=== PATIENT | male | born 1940 | race Caucasian/White ===

== ENCOUNTER 2020-07-09 16:19 | Inpatient (IN) ==
[2020-07-09 16:56] LABS: Basophils % 0.4 %; Eosinophils # 0.5 K/mcL (0.0-0.6); Eosinophils % 5.9 %; Hematocrit 34.6 % (37.5-50.1); Hemoglobin 10.2 g/dL (12.9-16.9); Immature Granulocytes % 0.2 % (0-4); Lymphocytes # 0.9 K/mcL (0.6-4.6); Lymphocytes % 11.3 %; Mean Corpuscular HGB Conc 29.5 g/dL (31.6-35.5); Mean Corpuscular Hemoglobin 26.2 pg (28.0-33.3); Mean Corpuscular Volume 88.7 fL (83.0-100.0); Mean Platelet Volume 10.9 fL (9.4-12.4); Monocytes # 0.8 K/mcL (0.0-1.3); Monocytes % 10.3 %; Neutrophils # 5.9 K/mcL (1.6-8.9); Platelet Count 341 K/mcL (140-400); Segmented Neutrophils % 71.9 %; White Blood Count 8.2 K/mcL (4.3-11.1)
[2020-07-09] MEDS ORDERED: Vancomycin 1,250 MG/262.5 ML IV.SOLN IVPB ONE (17:00)
[2020-07-09 17:12] LABS: Calcium 9.4 mg/dL (8.6-10.3); Potassium 4.9 mEq/L (3.5-5.1)
[2020-07-09] MEDS ORDERED: cefTRIAXone 1,000 MG in Water for inj. (sterile) 10 ML IVP ONE (17:13)
[2020-07-09] MEDS ORDERED: 0.9 % Sodium Chloride 1,000 ML IVC ONE (17:13)
[2020-07-09] MEDS ORDERED: Acetaminophen 325 MG TABLET PO PRN ×2 (20:25→23:47)
[2020-07-09] MEDS ORDERED: Naloxone 0.4 MG/ML INJ IVP PRN (20:25)
[2020-07-09] MEDS ORDERED: 0.9 % Sodium Chloride 1,000 ML IVC SCH (20:30)
[2020-07-09] MEDS ORDERED: Ipratropium/Albuterol Neb 3 ML IH PRN (20:44)
[2020-07-09] MEDS ORDERED: *HR* Dextrose 50 % in Water (Vial) 50 ML VIAL IVP PRN (20:45)
[2020-07-09] MEDS ORDERED: Dextrose Gel 15 GM/37.5 ML TUBE PO PRN ×2 (20:45)
[2020-07-09] MEDS ORDERED: D5% in Water 1,000 ML IVC PRN (20:45)
[2020-07-09 20:56] LABS: Bilirubin,Urine Negative (Negative); Blood,Urine Negative (Negative); Clarity,Urine Clear (Clear); Color,Urine Colorless (Yellow); Glucose,Urine (UA) Normal (Normal); Ketones,Urine Negative (Negative); Leukocyte Esterase,Urine Negative (Negative); Nitrite,Urine Negative (Negative); Protein,Urine 30 mg/dL (Neg-Trace); RBC,Urine 0-3 per hpf (0-3); Squamous Epithelial Cell,Urine Few per hpf (None-Few); Urobilinogen,Urine Normal (Normal); WBC,Urine 0-3 per hpf (0-3)
[2020-07-09] MEDS: Insulin LISPRO 300 UNITS/3 ML VIAL SQ SCH (21:01)
[2020-07-09 21:07] LABS: Protein/Creatinine Ratio,Urine 1.97 mg/mg (0.00-0.20)
[2020-07-09] MEDS: *HR* Heparin 5,000 UNIT/ML VIAL SQ SCH (21:23)
[2020-07-10] MEDS ORDERED: Furosemide 40 MG/4 ML VIAL IVP ONE (01:01)
[2020-07-10 01:15] LABS: Hematocrit 32.9 % (37.5-50.1); Mean Corpuscular HGB Conc 30.4 g/dL (31.6-35.5); Mean Corpuscular Hemoglobin 26.6 pg (28.0-33.3); Mean Corpuscular Volume 87.5 fL (83.0-100.0); Mean Platelet Volume 11.2 fL (9.4-12.4); Platelet Count 288 K/mcL (140-400); Red Blood Count 3.76 M/mcL (4.19-5.50); Red Cell Distribution Width 15.9 % (11.5-14.5); White Blood Count 10.4 K/mcL (4.3-11.1)
[2020-07-10 01:24] LABS: Albumin/Globulin Ratio 0.7 (1.1-2.2); Bilirubin,Total 0.2 mg/dL (0.3-1.0); Calcium 9.2 mg/dL (8.6-10.3); Globulin 4.3 g/dL (2.4-3.5); Potassium 4.9 mEq/L (3.5-5.1); Total Protein 7.3 g/dL (6.4-8.9)
[2020-07-10] MEDS ORDERED: Azithromycin 500 MG in 0.9 % Sodium Chloride 250 ML IVPB SCH (03:00)
[2020-07-10] MEDS: Ipratropium/Albuterol Neb 3 ML IH SCH ×5 (04:23→20:54)
[2020-07-10] MEDS: MethylPREDNISolone 40 MG/ML VIAL IVP SCH ×3 (04:50→16:33)
[2020-07-10] MEDS: *HR* Heparin 5,000 UNIT/ML VIAL SQ SCH ×3 (04:50→21:13)
[2020-07-10] MEDS: Insulin LISPRO 300 UNITS/3 ML VIAL SQ SCH ×3 (07:37→16:34)
[2020-07-10 07:38] LABS: Estimated Average Glucose 169 mg/dl
[2020-07-10] MEDS: DilTIAZem CD (24hr) 240 MG CAP.ER.24H PO SCH (07:53)
[2020-07-10] MEDS: allopurinoL 100 MG TABLET PO SCH (07:53)
[2020-07-10] MEDS: hydrALAZINE 25 MG TABLET PO SCH ×2 (07:53→21:12)
[2020-07-10] MEDS: Piperacillin/Tazobactam 3.375 GM in 0.9 % Sodium Chloride Mini Bag 100 ML IVPB SCH ×2 (07:54→21:13)
[2020-07-10] MEDS ORDERED: *HR* HYDROcodone/Acet 5/325 mg TABLET PO PRN (13:32)
[2020-07-10] MEDS ORDERED: Cefepime HCl 2,000 MG in 0.9 % Sodium Chloride Mini Bag 100 ML IVPB SCH (18:00)
[2020-07-10] MEDS: Furosemide 40 MG TABLET PO SCH (21:13)
[2020-07-11] MEDS: Ipratropium/Albuterol Neb 3 ML IH SCH ×7 (00:03→23:44)
[2020-07-11] MEDS: MethylPREDNISolone 40 MG/ML VIAL IVP SCH ×2 (05:02→18:50)
[2020-07-11] MEDS: *HR* Heparin 5,000 UNIT/ML VIAL SQ SCH ×3 (05:03→21:32)
[2020-07-11 05:40] LABS: Eosinophils # 0.1 K/mcL (0.0-0.6); Eosinophils % 0.6 %; Hemoglobin 10.2 g/dL (12.9-16.9); Immature Granulocytes % 0.2 % (0-4); Lymphocytes # 0.5 K/mcL (0.6-4.6); Lymphocytes % 5.5 %; Mean Corpuscular Hemoglobin 26.4 pg (28.0-33.3); Mean Corpuscular Volume 87.9 fL (83.0-100.0); Monocytes # 0.1 K/mcL (0.0-1.3); Monocytes % 1.2 %; Platelet Count 295 K/mcL (140-400); Red Blood Count 3.87 M/mcL (4.19-5.50); Red Cell Distribution Width 16.3 % (11.5-14.5); Segmented Neutrophils % 92.5 %
[2020-07-11 05:50] LABS: Calcium 9.5 mg/dL (8.6-10.3); Potassium 5.4 mEq/L (3.5-5.1)
[2020-07-11 06:26] LABS: Neutrophils # 8.3 K/mcL (1.6-8.9)
[2020-07-11 06:27] LABS: Platelet Estimate Normal (Normal)
[2020-07-11] MEDS: Furosemide 40 MG TABLET PO SCH (08:22)
[2020-07-11] MEDS: hydrALAZINE 25 MG TABLET PO SCH ×2 (08:22→20:05)
[2020-07-11] MEDS: allopurinoL 100 MG TABLET PO SCH (08:22)
[2020-07-11] MEDS: DilTIAZem CD (24hr) 240 MG CAP.ER.24H PO SCH (08:22)
[2020-07-11] MEDS: Piperacillin/Tazobactam 3.375 GM in 0.9 % Sodium Chloride Mini Bag 100 ML IVPB SCH ×2 (08:22→20:05)
[2020-07-11] MEDS: Insulin LISPRO 300 UNITS/3 ML VIAL SQ SCH ×3 (08:24→16:26)
[2020-07-11 12:42] LABS: Calcium 9.3 mg/dL (8.6-10.3); Potassium 5.6 mEq/L (3.5-5.1); Uric Acid 9.5 mg/dL (2.3-7.6)
[2020-07-11 13:19] LABS: Hepatitis B Surface Antigen Nonreactive (Nonreactive)
[2020-07-11 13:48] LABS: Hepatitis B Core IgM Nonreactive (Nonreactive)
[2020-07-11 13:49] LABS: Hepatitis A Antibody IgM Nonreactive (Nonreactive); Hepatitis C Virus Antibody Nonreactive (Nonreactive)
[2020-07-11] MEDS ORDERED: Insulin Human Regular 10 UNIT in 0.9 % Sodium Chloride 10 ML IV ONE (14:06)
[2020-07-11 15:32] LABS: Calcium 9.2 mg/dL (8.6-10.3); Potassium 4.7 mEq/L (3.5-5.1)
[2020-07-11] MEDS: Insulin DETEMIR 100 UNIT/ML X5UNITS SQ SCH (15:37)
[2020-07-12] MEDS: Ipratropium/Albuterol Neb 3 ML IH SCH ×5 (03:37→20:24)
[2020-07-12] MEDS: *HR* Heparin 5,000 UNIT/ML VIAL SQ SCH ×3 (05:31→21:53)
[2020-07-12] MEDS: MethylPREDNISolone 40 MG/ML VIAL IVP SCH (05:31)
[2020-07-12 05:58] LABS: Basophils % 0.1 %; Hemoglobin 9.5 g/dL (12.9-16.9); Immature Granulocytes % 0.5 % (0-4); Lymphocytes # 0.5 K/mcL (0.6-4.6); Mean Corpuscular HGB Conc 30.6 g/dL (31.6-35.5); Mean Corpuscular Hemoglobin 26.7 pg (28.0-33.3); Mean Corpuscular Volume 87.1 fL (83.0-100.0); Mean Platelet Volume 11.3 fL (9.4-12.4); Monocytes # 0.2 K/mcL (0.0-1.3); Monocytes % 1.1 %; Neutrophils # 12.4 K/mcL (1.6-8.9); Platelet Count 322 K/mcL (140-400); Red Blood Count 3.56 M/mcL (4.19-5.50); Segmented Neutrophils % 94.3 %; White Blood Count 13.2 K/mcL (4.3-11.1)
[2020-07-12 06:19] LABS: % Iron Saturation 18 % (20-55); Iron 51 mcg/dL (65-175); Transferrin 201 mg/dL (203-362)
[2020-07-12 06:21] LABS: Calcium 8.8 mg/dL (8.6-10.3); Potassium 4.7 mEq/L (3.5-5.1)
[2020-07-12 06:40] LABS: Folate > 22.3 ng/mL (3.0-16.0)
[2020-07-12 06:45] LABS: Vitamin B12 399 pg/mL (250-1100)
[2020-07-12] MEDS: Insulin LISPRO 300 UNITS/3 ML VIAL SQ SCH ×3 (07:51→16:54)
[2020-07-12] MEDS: Piperacillin/Tazobactam 3.375 GM in 0.9 % Sodium Chloride Mini Bag 100 ML IVPB SCH ×2 (07:51→21:53)
[2020-07-12] MEDS: predniSONE 20 MG TABLET PO SCH (07:52)
[2020-07-12] MEDS: hydrALAZINE 25 MG TABLET PO SCH ×2 (07:52→21:53)
[2020-07-12] MEDS: allopurinoL 100 MG TABLET PO SCH (07:53)
[2020-07-12] MEDS: DilTIAZem CD (24hr) 240 MG CAP.ER.24H PO SCH (07:53)
[2020-07-12] MEDS: Metoprolol XL (24 HR) Succ 50 MG TAB.ER.24H PO SCH (07:53)
[2020-07-12] MEDS: Insulin DETEMIR 100 UNIT/ML X5UNITS SQ SCH (07:54)
[2020-07-12] MEDS ORDERED: Sodium Bicarbonate 150 MEQ in D5% in Water 1,000 ML IVC SCH ×2 (15:30→15:45)
[2020-07-13] MEDS: Ipratropium/Albuterol Neb 3 ML IH SCH ×6 (00:04→22:09)
[2020-07-13 01:17] LABS: Hematocrit 29.6 % (37.5-50.1); Hemoglobin 9.2 g/dL (12.9-16.9); Lymphocytes # 0.7 K/mcL (0.6-4.6); Lymphocytes % 6.7 %; Mean Corpuscular HGB Conc 31.1 g/dL (31.6-35.5); Mean Corpuscular Hemoglobin 26.6 pg (28.0-33.3); Mean Corpuscular Volume 85.5 fL (83.0-100.0); Mean Platelet Volume 11.1 fL (9.4-12.4); Monocytes # 0.7 K/mcL (0.0-1.3); Monocytes % 6.3 %; Platelet Count 313 K/mcL (140-400); Red Blood Count 3.46 M/mcL (4.19-5.50); Red Cell Distribution Width 16.1 % (11.5-14.5); White Blood Count 10.4 K/mcL (4.3-11.1)
[2020-07-13 01:36] LABS: Calcium 8.4 mg/dL (8.6-10.3); Potassium 4.6 mEq/L (3.5-5.1)
[2020-07-13] MEDS: *HR* Heparin 5,000 UNIT/ML VIAL SQ SCH ×3 (05:26→20:54)
[2020-07-13] MEDS: hydrALAZINE 25 MG TABLET PO SCH ×2 (08:10→20:54)
[2020-07-13] MEDS: predniSONE 20 MG TABLET PO SCH (08:10)
[2020-07-13] MEDS: DilTIAZem CD (24hr) 240 MG CAP.ER.24H PO SCH (08:10)
[2020-07-13] MEDS: Insulin DETEMIR 100 UNIT/ML X5UNITS SQ SCH (08:10)
[2020-07-13] MEDS: allopurinoL 100 MG TABLET PO SCH (08:10)
[2020-07-13] MEDS: Insulin LISPRO 300 UNITS/3 ML VIAL SQ SCH ×3 (08:10→17:18)
[2020-07-13] MEDS: Metoprolol XL (24 HR) Succ 50 MG TAB.ER.24H PO SCH (08:10)
[2020-07-13] MEDS: Piperacillin/Tazobactam 3.375 GM in 0.9 % Sodium Chloride Mini Bag 100 ML IVPB SCH ×2 (08:11→20:53)
[2020-07-13] MEDS ORDERED: Ferumoxytol 510 MG in 0.9 % Sodium Chloride 100 ML IVPB ONE ×2 (08:54→12:00)
[2020-07-13] MEDS: Cyanocobalamin (B-12) 1,000 MCG TABLET PO SCH (12:13)
[2020-07-13] MEDS: Furosemide 40 MG TABLET PO SCH (20:54)
[2020-07-14] MEDS: Ipratropium/Albuterol Neb 3 ML IH SCH ×3 (03:26→15:36)
[2020-07-14 05:59] LABS: Hematocrit 30.2 % (37.5-50.1); Hemoglobin 9.2 g/dL (12.9-16.9); Mean Corpuscular HGB Conc 30.5 g/dL (31.6-35.5); Mean Corpuscular Hemoglobin 26.4 pg (28.0-33.3); Mean Corpuscular Volume 86.8 fL (83.0-100.0); Mean Platelet Volume 11.7 fL (9.4-12.4); Platelet Count 233 K/mcL (140-400); Red Blood Count 3.48 M/mcL (4.19-5.50); Red Cell Distribution Width 16.3 % (11.5-14.5); White Blood Count 8.7 K/mcL (4.3-11.1)
[2020-07-14] MEDS: *HR* Heparin 5,000 UNIT/ML VIAL SQ SCH (06:13)
[2020-07-14 06:24] LABS: Calcium 8.8 mg/dL (8.6-10.3); Potassium 4.7 mEq/L (3.5-5.1)
[2020-07-14] MEDS: Insulin LISPRO 300 UNITS/3 ML VIAL SQ SCH ×2 (07:58→11:51)
[2020-07-14] MEDS: Furosemide 40 MG TABLET PO SCH (08:18)
[2020-07-14] MEDS: DilTIAZem CD (24hr) 240 MG CAP.ER.24H PO SCH (08:18)
[2020-07-14] MEDS: hydrALAZINE 25 MG TABLET PO SCH (08:18)
[2020-07-14] MEDS: allopurinoL 100 MG TABLET PO SCH (08:18)
[2020-07-14] MEDS: predniSONE 20 MG TABLET PO SCH (08:18)
[2020-07-14] MEDS: Cyanocobalamin (B-12) 1,000 MCG TABLET PO SCH (08:18)
[2020-07-14] MEDS: Metoprolol XL (24 HR) Succ 50 MG TAB.ER.24H PO SCH (08:18)
[2020-07-14] MEDS: Insulin DETEMIR 100 UNIT/ML X5UNITS SQ SCH (08:24)
[2020-07-14] MEDS ORDERED: Doxycycline 100 MG CAPSULE PO SCH (09:00)
[2020-07-14 11:40] VITALS: BP 171/77
== END 2020-07-14 18:15 | disposition home health service (06) | DRG 602 ==
LOC: 2ANU 16:19 → EMEROOARM 16:19 → SUATTDRO 18:41 → 2ANU 19:47 → SUATTDRO 07-11 21:52
PROVIDERS: ADMIT Family Medicine; ATTEND Internal Medicine

== ENCOUNTER 2020-09-19 17:42 | Inpatient (IN) ==
[2020-09-19 20:33] LABS: Basophils % 0.5 %; Eosinophils # 0.5 K/mcL (0.0-0.6); Eosinophils % 5.3 %; Hematocrit 35.2 % (37.5-50.1); Hemoglobin 10.5 g/dL (12.9-16.9); Immature Granulocytes % 0.2 % (0-4); Lymphocytes # 1.1 K/mcL (0.6-4.6); Lymphocytes % 13.1 %; Mean Corpuscular HGB Conc 29.8 g/dL (31.6-35.5); Mean Corpuscular Volume 93.9 fL (83.0-100.0); Mean Platelet Volume 10.4 fL (9.4-12.4); Monocytes % 11.1 %; Neutrophils # 6.1 K/mcL (1.6-8.9); Platelet Count 279 K/mcL (140-400); Red Blood Count 3.75 M/mcL (4.19-5.50); Segmented Neutrophils % 69.8 %; White Blood Count 8.7 K/mcL (4.3-11.1)
[2020-09-19 20:46] LABS: Bilirubin,Urine Negative (Negative); Blood,Urine Negative (Negative); Clarity,Urine Clear (Clear); Color,Urine Light-Yellow (Yellow); Glucose,Urine (UA) Normal (Normal); Hyaline Casts,Urine Few per lpf (None Seen); Ketones,Urine Negative (Negative); Leukocyte Esterase,Urine Negative (Negative); Mucus,Urine Few per lpf (None-Few); Nitrite,Urine Negative (Negative); PH,Urine 5.5 pH Units (5.0-8.0); Protein,Urine 30 mg/dL (Neg-Trace); RBC,Urine 0-3 per hpf (0-3); Specific Gravity,Urine 1.012 (1.010-1.025); Urobilinogen,Urine Normal (Normal); WBC,Urine 0-3 per hpf (0-3)
[2020-09-19 20:55] LABS: BUN/Creatinine Ratio 23 (6-26); Blood Urea Nitrogen 67 mg/dL (8-23); Calcium 9.4 mg/dL (8.6-10.3); Carbon Dioxide 25 mEq/L (23-29); Chloride 105 mEq/L (98-107); Glucose 132 mg/dL (70-105); Osmolality,Calculated 311 (280-300); Potassium 4.5 mEq/L (3.5-5.1); Sodium 140 mEq/L (136-145); eGFR For African Americans 26 (> 60); eGFR For Non-African Americans 21 (> 60)
[2020-09-19 21:03] LABS: Troponin I < 0.03 ng/mL (< 0.04)
[2020-09-19] MEDS ORDERED: Furosemide 40 MG/4 ML VIAL IVP ONE (21:55)
[2020-09-19 22:12] LABS: C-Reactive Protein 30 mg/L (Less than 10); Creatine Kinase 37 Units/L (30-223)
[2020-09-19] MEDS ORDERED: Naloxone 0.4 MG/ML INJ IVP PRN (23:31)
[2020-09-19] MEDS ORDERED: Ondansetron 4 MG/2 ML VIAL IVP PRN (23:31)
[2020-09-19 23:56] LABS: Influenza A PCR Negative (Negative); Influenza B PCR Negative (Negative); Resp. Syncytial Virus PCR Negative (Negative)
[2020-09-20 00:11] LABS: SARS-CoV-2 by PCR (In House) Negative (Negative)
[2020-09-20] MEDS ORDERED: Ipratropium/Albuterol Neb 3 ML IH PRN (00:32)
[2020-09-20 04:35] LABS: Basophils % 0.4 %; Eosinophils # 0.5 K/mcL (0.0-0.6); Eosinophils % 5.9 %; Hematocrit 36.4 % (37.5-50.1); Immature Granulocytes % 0.4 % (0-4); Lymphocytes # 1.2 K/mcL (0.6-4.6); Lymphocytes % 14.9 %; Mean Corpuscular HGB Conc 30.2 g/dL (31.6-35.5); Mean Corpuscular Hemoglobin 28.1 pg (28.0-33.3); Mean Corpuscular Volume 92.9 fL (83.0-100.0); Mean Platelet Volume 10.7 fL (9.4-12.4); Monocytes # 0.7 K/mcL (0.0-1.3); Neutrophils # 5.4 K/mcL (1.6-8.9); Platelet Count 287 K/mcL (140-400); Red Blood Count 3.92 M/mcL (4.19-5.50); Red Cell Distribution Width 19.1 % (11.5-14.5); Segmented Neutrophils % 69.4 %; White Blood Count 7.8 K/mcL (4.3-11.1)
[2020-09-20 04:41] LABS: Activated Partial Thrombo Time 29.8 Seconds (26.0-36.0); INR 1.1; Prothrombin Time 12.9 Seconds (9.4-12.1)
[2020-09-20 04:52] LABS: Calcium 9.3 mg/dL (8.6-10.3); Magnesium 2.4 mg/dL (1.6-2.6); Phosphorous 3.7 mg/dL (2.7-4.5); Potassium 4.3 mEq/L (3.5-5.1)
[2020-09-20] MEDS: *HR* Heparin 5,000 UNIT/ML VIAL SQ SCH ×2 (05:29→17:12)
[2020-09-20] MEDS ORDERED: Doxycycline 100 MG in 0.9 % Sodium Chloride Mini Bag 100 ML IVPB SCH (06:00)
[2020-09-20] MEDS: DilTIAZem CD (24hr) 240 MG CAP.ER.24H PO SCH (09:40)
[2020-09-20] MEDS: Bumetanide 1 MG/4 ML VIAL IVP SCH ×2 (09:43→17:12)
[2020-09-20] MEDS ORDERED: Perflutren Lipid Microsphere 1.3 ML in 0.9 % Sodium Chloride 8.7 ML IVP PRN (12:15)
[2020-09-20] MEDS: Piperacillin/Tazobactam 3.375 GM in 0.9 % Sodium Chloride Mini Bag 100 ML IVPB SCH ×2 (17:07→23:40)
[2020-09-21 02:51] LABS: Basophils % 0.5 %; Hemoglobin 10.9 g/dL (12.9-16.9); Immature Granulocytes % 0.3 % (0-4); Mean Platelet Volume 11.5 fL (9.4-12.4)
[2020-09-21 02:53] LABS: Basophils # 0.1 K/mcL (0.0-0.2); Eosinophils # 0.7 K/mcL (0.0-0.6); Hematocrit 36.5 % (37.5-50.1); Immature Platelets 5.5 % (1.1-6.1); Lymphocytes # 1.2 K/mcL (0.6-4.6); Mean Corpuscular HGB Conc 29.9 g/dL (31.6-35.5); Mean Corpuscular Hemoglobin 27.7 pg (28.0-33.3); Mean Corpuscular Volume 92.9 fL (83.0-100.0); Monocytes # 0.9 K/mcL (0.0-1.3); Neutrophils # 6.6 K/mcL (1.6-8.9); Platelet Count 254 K/mcL (140-400); Red Blood Count 3.93 M/mcL (4.19-5.50); Segmented Neutrophils % 70.2 %; White Blood Count 9.4 K/mcL (4.3-11.1)
[2020-09-21 03:11] LABS: Calcium 9.4 mg/dL (8.6-10.3); Phosphorous 3.7 mg/dL (2.7-4.5); Potassium 4.3 mEq/L (3.5-5.1)
[2020-09-21] MEDS: *HR* Heparin 5,000 UNIT/ML VIAL SQ SCH ×2 (05:32→16:31)
[2020-09-21] MEDS: Bumetanide 1 MG/4 ML VIAL IVP SCH ×2 (09:05→16:31)
[2020-09-21] MEDS: Piperacillin/Tazobactam 3.375 GM in 0.9 % Sodium Chloride Mini Bag 100 ML IVPB SCH ×2 (09:06→16:31)
[2020-09-21] MEDS: DilTIAZem CD (24hr) 240 MG CAP.ER.24H PO SCH (09:38)
[2020-09-21] MEDS ORDERED: Acetaminophen 325 MG TABLET PO ONE (10:30)
[2020-09-21] MEDS ORDERED: *HR* HYDROcodone/Acet 5/325 mg TABLET PO PRN (14:21)
[2020-09-21] MEDS ORDERED: allopurinoL 100 MG TABLET PO PRN (15:03)
[2020-09-21] MEDS: hydrALAZINE 25 MG TABLET PO SCH (21:21)
[2020-09-22] MEDS: Piperacillin/Tazobactam 3.375 GM in 0.9 % Sodium Chloride Mini Bag 100 ML IVPB SCH ×4 (01:02→23:41)
[2020-09-22 01:46] LABS: Hematocrit 33.7 % (37.5-50.1); Hemoglobin 10.2 g/dL (12.9-16.9); Mean Corpuscular HGB Conc 30.3 g/dL (31.6-35.5); Mean Corpuscular Hemoglobin 28.4 pg (28.0-33.3); Mean Corpuscular Volume 93.9 fL (83.0-100.0); Mean Platelet Volume 10.7 fL (9.4-12.4); Platelet Count 267 K/mcL (140-400); Red Blood Count 3.59 M/mcL (4.19-5.50); Red Cell Distribution Width 18.9 % (11.5-14.5); White Blood Count 7.4 K/mcL (4.3-11.1)
[2020-09-22 02:09] LABS: Albumin 2.9 g/dL (3.5-5.7); Albumin/Globulin Ratio 0.7 (1.1-2.2); Bilirubin,Total 0.3 mg/dL (0.3-1.0); Calcium 9.3 mg/dL (8.6-10.3); Globulin 4.2 g/dL (2.4-3.5); Potassium 4.1 mEq/L (3.5-5.1); Total Protein 7.1 g/dL (6.4-8.9)
[2020-09-22] MEDS: *HR* Heparin 5,000 UNIT/ML VIAL SQ SCH ×2 (06:33→17:53)
[2020-09-22] MEDS: DilTIAZem CD (24hr) 240 MG CAP.ER.24H PO SCH (08:35)
[2020-09-22] MEDS: hydrALAZINE 25 MG TABLET PO SCH ×2 (08:35→21:03)
[2020-09-22] MEDS: Metoprolol XL (24 HR) Succ 50 MG TAB.ER.24H PO SCH (08:35)
[2020-09-22] MEDS: Albumin 25% 25gram/100mL 25 GM/100 ML IV.SOLN IVPB SCH ×2 (08:36→21:03)
[2020-09-22] MEDS: Bumetanide 1 MG/4 ML VIAL IVP SCH ×2 (09:35→15:56)
[2020-09-23] MEDS: *HR* HYDROcodone/Acet 5/325 mg TABLET PO PRN ×2 (04:20→20:37)
[2020-09-23] MEDS: *HR* Heparin 5,000 UNIT/ML VIAL SQ SCH ×2 (06:05→17:29)
[2020-09-23] MEDS: hydrALAZINE 25 MG TABLET PO SCH ×2 (08:04→20:27)
[2020-09-23] MEDS: Albumin 25% 25gram/100mL 25 GM/100 ML IV.SOLN IVPB SCH ×2 (08:04→20:27)
[2020-09-23] MEDS: Metoprolol XL (24 HR) Succ 50 MG TAB.ER.24H PO SCH (08:04)
[2020-09-23] MEDS: DilTIAZem CD (24hr) 240 MG CAP.ER.24H PO SCH (08:04)
[2020-09-23] MEDS ORDERED: Bumetanide 1 MG/4 ML VIAL IVP SCH ×2 (09:30→23:00)
[2020-09-23] MEDS: Acetaminophen 325 MG TABLET PO PRN (10:02)
[2020-09-23] MEDS: Piperacillin/Tazobactam 3.375 GM in 0.9 % Sodium Chloride Mini Bag 100 ML IVPB SCH ×2 (10:03→15:36)
[2020-09-24] MEDS: Piperacillin/Tazobactam 3.375 GM in 0.9 % Sodium Chloride Mini Bag 100 ML IVPB SCH ×3 (00:29→16:01)
[2020-09-24] MEDS: *HR* Heparin 5,000 UNIT/ML VIAL SQ SCH ×2 (06:25→17:55)
[2020-09-24 07:34] LABS: Calcium 9.5 mg/dL (8.6-10.3); Potassium 4.4 mEq/L (3.5-5.1)
[2020-09-24] MEDS: Metoprolol XL (24 HR) Succ 50 MG TAB.ER.24H PO SCH (08:12)
[2020-09-24] MEDS: hydrALAZINE 25 MG TABLET PO SCH ×2 (08:12→19:48)
[2020-09-24] MEDS: DilTIAZem CD (24hr) 240 MG CAP.ER.24H PO SCH (08:12)
[2020-09-24] MEDS: *HR* HYDROcodone/Acet 5/325 mg TABLET PO PRN (09:47)
[2020-09-25] MEDS: Piperacillin/Tazobactam 3.375 GM in 0.9 % Sodium Chloride Mini Bag 100 ML IVPB SCH ×3 (00:19→20:40)
[2020-09-25 02:52] LABS: Hematocrit 30.1 % (37.5-50.1); Mean Corpuscular HGB Conc 29.9 g/dL (31.6-35.5); Mean Corpuscular Hemoglobin 28.5 pg (28.0-33.3); Mean Corpuscular Volume 95.3 fL (83.0-100.0); Mean Platelet Volume 10.9 fL (9.4-12.4); Platelet Count 209 K/mcL (140-400); Red Blood Count 3.16 M/mcL (4.19-5.50); Red Cell Distribution Width 18.4 % (11.5-14.5); White Blood Count 9.3 K/mcL (4.3-11.1)
[2020-09-25 03:09] LABS: Calcium 8.9 mg/dL (8.6-10.3); Potassium 4.5 mEq/L (3.5-5.1)
[2020-09-25] MEDS: *HR* Heparin 5,000 UNIT/ML VIAL SQ SCH ×2 (05:24→17:03)
[2020-09-25] MEDS: hydrALAZINE 25 MG TABLET PO SCH ×2 (08:04→20:38)
[2020-09-25] MEDS: Metoprolol XL (24 HR) Succ 50 MG TAB.ER.24H PO SCH (08:04)
[2020-09-25] MEDS: DilTIAZem CD (24hr) 240 MG CAP.ER.24H PO SCH (08:05)
[2020-09-25] MEDS: *HR* HYDROcodone/Acet 5/325 mg TABLET PO PRN (09:44)
[2020-09-25 13:50] LABS: Bacteria,Urine Few per hpf (None-Few); Bilirubin,Urine Negative (Negative); Blood,Urine Trace (Negative); Clarity,Urine Clear (Clear); Color,Urine Light-Yellow (Yellow); Glucose,Urine (UA) Normal (Normal); Ketones,Urine Negative (Negative); Leukocyte Esterase,Urine Negative (Negative); Mucus,Urine Few per lpf (None-Few); Nitrite,Urine Negative (Negative); Protein,Urine 100 mg/dL (Neg-Trace); RBC,Urine 0-3 per hpf (0-3); Specific Gravity,Urine 1.016 (1.010-1.025); Urobilinogen,Urine Normal (Normal); WBC,Urine 0-3 per hpf (0-3)
[2020-09-25 13:58] LABS: Protein/Creatinine Ratio,Urine 2.28 mg/mg (0.00-0.20); Sodium, Urine 32.5 mEq/L
[2020-09-25] MEDS: Albumin 25% 25gram/100mL 25 GM/100 ML IV.SOLN IVPB SCH (17:00)
[2020-09-25] MEDS: Furosemide 40 MG/4 ML VIAL IVP SCH (20:39)
[2020-09-26 01:31] LABS: Basophils % 0.2 %; Eosinophils # 0.4 K/mcL (0.0-0.6); Eosinophils % 5.1 %; Hematocrit 30.3 % (37.5-50.1); Hemoglobin 9.1 g/dL (12.9-16.9); Immature Granulocytes % 0.2 % (0-4); Lymphocytes % 12.1 %; Mean Corpuscular Hemoglobin 28.5 pg (28.0-33.3); Mean Platelet Volume 10.7 fL (9.4-12.4); Monocytes # 0.9 K/mcL (0.0-1.3); Monocytes % 10.6 %; Neutrophils # 6.2 K/mcL (1.6-8.9); Platelet Count 231 K/mcL (140-400); Red Blood Count 3.19 M/mcL (4.19-5.50); Red Cell Distribution Width 18.1 % (11.5-14.5); Segmented Neutrophils % 71.8 %; White Blood Count 8.6 K/mcL (4.3-11.1)
[2020-09-26 01:49] LABS: Albumin 3.5 g/dL (3.5-5.7); Calcium 9.2 mg/dL (8.6-10.3); Magnesium 2.1 mg/dL (1.6-2.6); Phosphorous 4.5 mg/dL (2.7-4.5); Potassium 4.5 mEq/L (3.5-5.1)
[2020-09-26] MEDS: *HR* HYDROcodone/Acet 5/325 mg TABLET PO PRN (03:21)
[2020-09-26] MEDS: *HR* Heparin 5,000 UNIT/ML VIAL SQ SCH ×2 (06:12→21:21)
[2020-09-26] MEDS: Albumin 25% 25gram/100mL 25 GM/100 ML IV.SOLN IVPB SCH ×2 (06:17→21:20)
[2020-09-26] MEDS: Piperacillin/Tazobactam 3.375 GM in 0.9 % Sodium Chloride Mini Bag 100 ML IVPB SCH (08:04)
[2020-09-26] MEDS: Metoprolol XL (24 HR) Succ 50 MG TAB.ER.24H PO SCH (08:05)
[2020-09-26] MEDS: hydrALAZINE 25 MG TABLET PO SCH ×2 (08:05→21:21)
[2020-09-26] MEDS: DilTIAZem CD (24hr) 240 MG CAP.ER.24H PO SCH (08:05)
[2020-09-26] MEDS: Furosemide 40 MG/4 ML VIAL IVP SCH ×2 (13:12→21:21)
[2020-09-27 01:47] LABS: Hematocrit 27.4 % (37.5-50.1); Hemoglobin 8.4 g/dL (12.9-16.9); Mean Corpuscular HGB Conc 30.7 g/dL (31.6-35.5); Mean Corpuscular Volume 94.5 fL (83.0-100.0); Mean Platelet Volume 10.7 fL (9.4-12.4); Platelet Count 212 K/mcL (140-400); Red Cell Distribution Width 18.1 % (11.5-14.5); White Blood Count 9.4 K/mcL (4.3-11.1)
[2020-09-27 02:09] LABS: Calcium 9.4 mg/dL (8.6-10.3); Potassium 4.4 mEq/L (3.5-5.1)
[2020-09-27] MEDS: Albumin 25% 25gram/100mL 25 GM/100 ML IV.SOLN IVPB SCH (07:23)
[2020-09-27] MEDS: hydrALAZINE 25 MG TABLET PO SCH ×2 (07:28→19:50)
[2020-09-27] MEDS: DilTIAZem CD (24hr) 240 MG CAP.ER.24H PO SCH (07:28)
[2020-09-27] MEDS: Metoprolol XL (24 HR) Succ 50 MG TAB.ER.24H PO SCH (07:28)
[2020-09-27] MEDS: *HR* Heparin 5,000 UNIT/ML VIAL SQ SCH ×2 (07:28→17:59)
[2020-09-27] MEDS ORDERED: Furosemide 40 MG TABLET PO SCH (10:30)
[2020-09-27] MEDS: Furosemide 40 MG/4 ML VIAL IVP SCH ×2 (11:06→18:41)
[2020-09-27] MEDS ORDERED: Isovue-300 50ML VIAL ONE (13:47)
[2020-09-27] MEDS ORDERED: Albumin 25% 25gram/100mL 25 GM/100 ML IV.SOLN IVPB ONE (18:00)
[2020-09-28 01:23] LABS: Hematocrit 28.7 % (37.5-50.1); Hemoglobin 8.6 g/dL (12.9-16.9); Mean Corpuscular Hemoglobin 28.1 pg (28.0-33.3); Mean Corpuscular Volume 93.8 fL (83.0-100.0); Mean Platelet Volume 10.9 fL (9.4-12.4); Platelet Count 237 K/mcL (140-400); Red Blood Count 3.06 M/mcL (4.19-5.50); Red Cell Distribution Width 17.7 % (11.5-14.5); White Blood Count 9.2 K/mcL (4.3-11.1)
[2020-09-28 01:40] LABS: Calcium 9.6 mg/dL (8.6-10.3); INR 1.2; Potassium 4.5 mEq/L (3.5-5.1); Prothrombin Time 14.2 Seconds (9.4-12.1)
[2020-09-28] MEDS: hydrALAZINE 25 MG TABLET PO SCH ×2 (10:21→20:48)
[2020-09-28] MEDS: DilTIAZem CD (24hr) 240 MG CAP.ER.24H PO SCH (10:21)
[2020-09-28] MEDS: Metoprolol XL (24 HR) Succ 50 MG TAB.ER.24H PO SCH (10:22)
[2020-09-28] MEDS: *HR* Heparin 5,000 UNIT/ML VIAL SQ SCH (20:47)
[2020-09-28] MEDS: *HR* HYDROcodone/Acet 5/325 mg TABLET PO PRN (23:47)
[2020-09-29] MEDS: *HR* Heparin 5,000 UNIT/ML VIAL SQ SCH ×2 (05:14→17:05)
[2020-09-29 07:30] LABS: Hematocrit 28.9 % (37.5-50.1); Hemoglobin 8.7 g/dL (12.9-16.9); Mean Corpuscular HGB Conc 30.1 g/dL (31.6-35.5); Mean Corpuscular Hemoglobin 28.5 pg (28.0-33.3); Mean Corpuscular Volume 94.8 fL (83.0-100.0); Mean Platelet Volume 11.2 fL (9.4-12.4); Platelet Count 277 K/mcL (140-400); Red Blood Count 3.05 M/mcL (4.19-5.50); Red Cell Distribution Width 17.2 % (11.5-14.5)
[2020-09-29 08:07] LABS: Calcium 9.7 mg/dL (8.6-10.3); Magnesium 2.5 mg/dL (1.6-2.6); Potassium 4.5 mEq/L (3.5-5.1)
[2020-09-29] MEDS: DilTIAZem CD (24hr) 240 MG CAP.ER.24H PO SCH (09:41)
[2020-09-29] MEDS: hydrALAZINE 25 MG TABLET PO SCH ×2 (09:41→20:08)
[2020-09-29] MEDS: Metoprolol XL (24 HR) Succ 50 MG TAB.ER.24H PO SCH (09:42)
[2020-09-30 05:55] LABS: Hematocrit 28.8 % (37.5-50.1); Hemoglobin 8.6 g/dL (12.9-16.9); Mean Corpuscular HGB Conc 29.9 g/dL (31.6-35.5); Mean Corpuscular Hemoglobin 27.8 pg (28.0-33.3); Mean Corpuscular Volume 93.2 fL (83.0-100.0); Mean Platelet Volume 11.2 fL (9.4-12.4); Platelet Count 298 K/mcL (140-400); Red Blood Count 3.09 M/mcL (4.19-5.50); Red Cell Distribution Width 17.4 % (11.5-14.5); White Blood Count 10.9 K/mcL (4.3-11.1)
[2020-09-30 06:16] LABS: Calcium 9.6 mg/dL (8.6-10.3); Potassium 4.5 mEq/L (3.5-5.1)
[2020-09-30] MEDS: *HR* Heparin 5,000 UNIT/ML VIAL SQ SCH ×2 (06:19→16:54)
[2020-09-30] MEDS: hydrALAZINE 25 MG TABLET PO SCH ×2 (08:03→20:12)
[2020-09-30] MEDS: Metoprolol XL (24 HR) Succ 50 MG TAB.ER.24H PO SCH (08:03)
[2020-09-30] MEDS: DilTIAZem CD (24hr) 240 MG CAP.ER.24H PO SCH (08:03)
[2020-10-01 01:53] LABS: Basophils % 0.2 %; Eosinophils # 0.5 K/mcL (0.0-0.6); Eosinophils % 4.8 %; Hematocrit 27.4 % (37.5-50.1); Hemoglobin 8.3 g/dL (12.9-16.9); Immature Granulocytes % 0.2 % (0-4); Lymphocytes # 0.9 K/mcL (0.6-4.6); Lymphocytes % 9.5 %; Mean Corpuscular HGB Conc 30.3 g/dL (31.6-35.5); Mean Corpuscular Hemoglobin 28.6 pg (28.0-33.3); Mean Corpuscular Volume 94.5 fL (83.0-100.0); Mean Platelet Volume 11.5 fL (9.4-12.4); Monocytes # 1.2 K/mcL (0.0-1.3); Monocytes % 12.1 %; Neutrophils # 7.2 K/mcL (1.6-8.9); Platelet Count 296 K/mcL (140-400); Segmented Neutrophils % 73.2 %; White Blood Count 9.8 K/mcL (4.3-11.1)
[2020-10-01 02:01] LABS: Calcium 9.3 mg/dL (8.6-10.3); Potassium 4.9 mEq/L (3.5-5.1)
[2020-10-01] MEDS: *HR* Heparin 5,000 UNIT/ML VIAL SQ SCH ×2 (05:17→16:25)
[2020-10-01] MEDS: Metoprolol XL (24 HR) Succ 50 MG TAB.ER.24H PO SCH (09:43)
[2020-10-01] MEDS: hydrALAZINE 25 MG TABLET PO SCH ×2 (09:43→21:42)
[2020-10-01] MEDS: DilTIAZem CD (24hr) 240 MG CAP.ER.24H PO SCH (09:43)
[2020-10-01] MEDS: Furosemide 40 MG TABLET PO SCH (16:25)
[2020-10-02] MEDS: *HR* HYDROcodone/Acet 5/325 mg TABLET PO PRN ×2 (03:06→20:37)
[2020-10-02] MEDS: *HR* Heparin 5,000 UNIT/ML VIAL SQ SCH ×2 (06:14→16:28)
[2020-10-02 07:27] LABS: Basophils % 0.3 %; Eosinophils # 0.6 K/mcL (0.0-0.6); Eosinophils % 6.2 %; Hematocrit 27.9 % (37.5-50.1); Hemoglobin 8.2 g/dL (12.9-16.9); Immature Granulocytes % 0.3 % (0-4); Lymphocytes # 1.1 K/mcL (0.6-4.6); Mean Corpuscular HGB Conc 29.4 g/dL (31.6-35.5); Mean Corpuscular Hemoglobin 27.7 pg (28.0-33.3); Mean Corpuscular Volume 94.3 fL (83.0-100.0); Monocytes # 0.8 K/mcL (0.0-1.3); Monocytes % 9.2 %; Neutrophils # 6.3 K/mcL (1.6-8.9); Platelet Count 270 K/mcL (140-400); Red Blood Count 2.96 M/mcL (4.19-5.50); Red Cell Distribution Width 17.2 % (11.5-14.5); White Blood Count 8.8 K/mcL (4.3-11.1)
[2020-10-02 07:48] LABS: Calcium 9.7 mg/dL (8.6-10.3)
[2020-10-02] MEDS: hydrALAZINE 25 MG TABLET PO SCH ×2 (11:38→20:33)
[2020-10-02] MEDS: Metoprolol XL (24 HR) Succ 50 MG TAB.ER.24H PO SCH (11:38)
[2020-10-02] MEDS: DilTIAZem CD (24hr) 240 MG CAP.ER.24H PO SCH (11:38)
[2020-10-02] MEDS: Furosemide 40 MG TABLET PO SCH ×2 (11:38→16:28)
[2020-10-03 05:19] LABS: Hematocrit 30.6 % (37.5-50.1); Mean Corpuscular HGB Conc 29.4 g/dL (31.6-35.5); Mean Corpuscular Hemoglobin 28.2 pg (28.0-33.3); Mean Corpuscular Volume 95.9 fL (83.0-100.0); Mean Platelet Volume 11.3 fL (9.4-12.4); Platelet Count 372 K/mcL (140-400); Red Blood Count 3.19 M/mcL (4.19-5.50); White Blood Count 9.4 K/mcL (4.3-11.1)
[2020-10-03 05:39] LABS: Calcium 9.9 mg/dL (8.6-10.3); Potassium 5.2 mEq/L (3.5-5.1)
[2020-10-03] MEDS: *HR* Heparin 5,000 UNIT/ML VIAL SQ SCH ×2 (06:04→18:11)
[2020-10-03] MEDS: Furosemide 40 MG TABLET PO SCH ×2 (08:06→18:11)
[2020-10-03] MEDS: hydrALAZINE 25 MG TABLET PO SCH ×2 (08:06→20:27)
[2020-10-03] MEDS: DilTIAZem CD (24hr) 240 MG CAP.ER.24H PO SCH (08:07)
[2020-10-03] MEDS: Metoprolol XL (24 HR) Succ 50 MG TAB.ER.24H PO SCH (08:07)
[2020-10-03] MEDS: *HR* HYDROcodone/Acet 5/325 mg TABLET PO PRN (20:27)
[2020-10-04 06:07] LABS: Hematocrit 31.1 % (37.5-50.1); Hemoglobin 9.2 g/dL (12.9-16.9); Mean Corpuscular HGB Conc 29.6 g/dL (31.6-35.5); Mean Corpuscular Hemoglobin 27.9 pg (28.0-33.3); Mean Corpuscular Volume 94.2 fL (83.0-100.0); Mean Platelet Volume 11.1 fL (9.4-12.4); Platelet Count 432 K/mcL (140-400); Red Cell Distribution Width 16.8 % (11.5-14.5); White Blood Count 8.5 K/mcL (4.3-11.1)
[2020-10-04] MEDS: *HR* Heparin 5,000 UNIT/ML VIAL SQ SCH ×2 (06:24→17:08)
[2020-10-04 06:25] LABS: Calcium 9.8 mg/dL (8.6-10.3); Potassium 4.9 mEq/L (3.5-5.1)
[2020-10-04] MEDS: Metoprolol XL (24 HR) Succ 50 MG TAB.ER.24H PO SCH (09:06)
[2020-10-04] MEDS: Furosemide 40 MG TABLET PO SCH ×2 (09:06→17:08)
[2020-10-04] MEDS: DilTIAZem CD (24hr) 240 MG CAP.ER.24H PO SCH (09:06)
[2020-10-04] MEDS: hydrALAZINE 25 MG TABLET PO SCH ×2 (09:06→20:40)
[2020-10-05] MEDS: *HR* Heparin 5,000 UNIT/ML VIAL SQ SCH ×2 (05:54→17:18)
[2020-10-05 06:11] LABS: Calcium 9.7 mg/dL (8.6-10.3); Potassium 5.1 mEq/L (3.5-5.1)
[2020-10-05] MEDS ORDERED: *HR* Heparin 10,000 UNIT/10 ML VIAL IV PRN (08:47)
[2020-10-05] MEDS ORDERED: 0.9 % Sodium Chloride 250 ML IVC PRN (08:47)
[2020-10-05] MEDS ORDERED: 0.9 % Sodium Chloride 1,000 ML PRIME SCH (09:00)
[2020-10-05] MEDS: Furosemide 40 MG TABLET PO SCH ×2 (10:00→17:18)
[2020-10-05] MEDS: Metoprolol XL (24 HR) Succ 50 MG TAB.ER.24H PO SCH (10:00)
[2020-10-05] MEDS: DilTIAZem CD (24hr) 240 MG CAP.ER.24H PO SCH (10:00)
[2020-10-05] MEDS: hydrALAZINE 25 MG TABLET PO SCH ×2 (10:00→20:10)
[2020-10-05 10:08] LABS: Hepatitis B Surface Antigen Nonreactive (Nonreactive)
[2020-10-05] MEDS ORDERED: *HR* Heparin 5,000 UNIT/ML VIAL ONE (10:33)
[2020-10-05 10:40] LABS: Hepatitis B Surface Antibody 7.64 mIU/mL
[2020-10-05] MEDS: Acetaminophen 325 MG TABLET PO PRN (20:18)
[2020-10-06 03:03] LABS: Basophils % 0.4 %; Eosinophils # 0.5 K/mcL (0.0-0.6); Eosinophils % 6.1 %; Hematocrit 29.5 % (37.5-50.1); Hemoglobin 8.6 g/dL (12.9-16.9); Immature Granulocytes % 0.5 % (0-4); Lymphocytes % 12.4 %; Mean Corpuscular HGB Conc 29.2 g/dL (31.6-35.5); Mean Corpuscular Hemoglobin 27.6 pg (28.0-33.3); Mean Corpuscular Volume 94.6 fL (83.0-100.0); Monocytes # 0.8 K/mcL (0.0-1.3); Monocytes % 10.1 %; Neutrophils # 5.4 K/mcL (1.6-8.9); Platelet Count 423 K/mcL (140-400); Red Blood Count 3.12 M/mcL (4.19-5.50); Red Cell Distribution Width 16.6 % (11.5-14.5); Segmented Neutrophils % 70.5 %; White Blood Count 7.7 K/mcL (4.3-11.1)
[2020-10-06 03:14] LABS: Calcium 9.9 mg/dL (8.6-10.3); Magnesium 2.2 mg/dL (1.6-2.6); Phosphorous 3.8 mg/dL (2.7-4.5); Potassium 4.8 mEq/L (3.5-5.1)
[2020-10-06] MEDS: *HR* Heparin 5,000 UNIT/ML VIAL SQ SCH ×2 (05:24→15:52)
[2020-10-06] MEDS ORDERED: *HR* Heparin 10,000 UNIT/10 ML VIAL IV PRN (07:54)
[2020-10-06] MEDS ORDERED: 0.9 % Sodium Chloride 250 ML IVC PRN (07:54)
[2020-10-06] MEDS ORDERED: 0.9 % Sodium Chloride 1,000 ML PRIME SCH (08:00)
[2020-10-06] MEDS: hydrALAZINE 25 MG TABLET PO SCH ×2 (09:44→20:16)
[2020-10-06] MEDS: Furosemide 40 MG TABLET PO SCH ×2 (09:44→15:52)
[2020-10-06] MEDS: Acetaminophen 325 MG TABLET PO PRN (13:20)
[2020-10-06] MEDS: DilTIAZem CD (24hr) 240 MG CAP.ER.24H PO SCH (15:52)
[2020-10-06] MEDS: Metoprolol XL (24 HR) Succ 50 MG TAB.ER.24H PO SCH (15:53)
[2020-10-07 04:30] LABS: Calcium 9.7 mg/dL (8.6-10.3); Phosphorous 3.6 mg/dL (2.7-4.5); Potassium 5.1 mEq/L (3.5-5.1)
[2020-10-07] MEDS: *HR* Heparin 5,000 UNIT/ML VIAL SQ SCH ×2 (06:00→16:53)
[2020-10-07] MEDS ORDERED: *HR* Heparin 10,000 UNIT/10 ML VIAL IV PRN (07:44)
[2020-10-07] MEDS ORDERED: 0.9 % Sodium Chloride 250 ML IVC PRN (07:44)
[2020-10-07] MEDS: Furosemide 40 MG TABLET PO SCH ×2 (09:41→16:53)
[2020-10-07] MEDS: Acetaminophen 325 MG TABLET PO PRN ×2 (15:13→23:58)
[2020-10-07] MEDS: hydrALAZINE 25 MG TABLET PO SCH ×2 (15:32→21:14)
[2020-10-07 15:53] LABS: Basophils % 0.4 %; Eosinophils # 0.6 K/mcL (0.0-0.6); Eosinophils % 7.7 %; Hematocrit 29.3 % (37.5-50.1); Hemoglobin 8.7 g/dL (12.9-16.9); Immature Granulocytes % 0.1 % (0-4); Lymphocytes # 1.2 K/mcL (0.6-4.6); Lymphocytes % 15.5 %; Mean Corpuscular HGB Conc 29.7 g/dL (31.6-35.5); Mean Corpuscular Hemoglobin 28.1 pg (28.0-33.3); Mean Corpuscular Volume 94.5 fL (83.0-100.0); Monocytes # 0.7 K/mcL (0.0-1.3); Monocytes % 8.8 %; Platelet Count 307 K/mcL (140-400); Red Cell Distribution Width 16.4 % (11.5-14.5); Segmented Neutrophils % 67.5 %; White Blood Count 7.4 K/mcL (4.3-11.1)
[2020-10-07] MEDS: Metoprolol XL (24 HR) Succ 50 MG TAB.ER.24H PO SCH (16:53)
[2020-10-07] MEDS: DilTIAZem CD (24hr) 240 MG CAP.ER.24H PO SCH (16:53)
[2020-10-08 00:38] LABS: Basophils % 0.5 %; Eosinophils # 0.9 K/mcL (0.0-0.6); Eosinophils % 10.3 %; Hematocrit 29.5 % (37.5-50.1); Hemoglobin 8.9 g/dL (12.9-16.9); Immature Granulocytes % 0.2 % (0-4); Lymphocytes # 1.4 K/mcL (0.6-4.6); Lymphocytes % 16.5 %; Mean Corpuscular HGB Conc 30.2 g/dL (31.6-35.5); Mean Corpuscular Hemoglobin 28.9 pg (28.0-33.3); Mean Corpuscular Volume 95.8 fL (83.0-100.0); Monocytes # 0.9 K/mcL (0.0-1.3); Neutrophils # 5.3 K/mcL (1.6-8.9); Platelet Count 310 K/mcL (140-400); Red Blood Count 3.08 M/mcL (4.19-5.50); Red Cell Distribution Width 16.2 % (11.5-14.5); Segmented Neutrophils % 61.5 %; White Blood Count 8.6 K/mcL (4.3-11.1)
[2020-10-08 00:58] LABS: Calcium 9.5 mg/dL (8.6-10.3); Magnesium 2.1 mg/dL (1.6-2.6); Phosphorous 3.4 mg/dL (2.7-4.5); Potassium 4.7 mEq/L (3.5-5.1)
[2020-10-08] MEDS: *HR* Heparin 5,000 UNIT/ML VIAL SQ SCH ×2 (05:32→16:47)
[2020-10-08] MEDS: Furosemide 40 MG TABLET PO SCH ×2 (08:16→16:47)
[2020-10-08] MEDS: hydrALAZINE 25 MG TABLET PO SCH ×2 (08:16→20:38)
[2020-10-08] MEDS: DilTIAZem CD (24hr) 240 MG CAP.ER.24H PO SCH (08:16)
[2020-10-08] MEDS: Metoprolol XL (24 HR) Succ 50 MG TAB.ER.24H PO SCH (08:16)
[2020-10-08] MEDS ORDERED: Melatonin 3 MG TABLET PO PRN (09:10)
[2020-10-08] MEDS: Acetaminophen 325 MG TABLET PO PRN (20:38)
[2020-10-09 01:55] LABS: Basophils % 0.3 %; Eosinophils # 0.9 K/mcL (0.0-0.6); Eosinophils % 11.4 %; Hematocrit 27.7 % (37.5-50.1); Hemoglobin 8.4 g/dL (12.9-16.9); Immature Granulocytes % 0.1 % (0-4); Lymphocytes # 1.2 K/mcL (0.6-4.6); Lymphocytes % 14.4 %; Mean Corpuscular HGB Conc 30.3 g/dL (31.6-35.5); Mean Corpuscular Hemoglobin 28.7 pg (28.0-33.3); Mean Corpuscular Volume 94.5 fL (83.0-100.0); Mean Platelet Volume 10.7 fL (9.4-12.4); Monocytes # 0.9 K/mcL (0.0-1.3); Monocytes % 11.4 %; Platelet Count 294 K/mcL (140-400); Red Blood Count 2.93 M/mcL (4.19-5.50); Red Cell Distribution Width 16.3 % (11.5-14.5); Segmented Neutrophils % 62.4 %
[2020-10-09] MEDS: *HR* Heparin 5,000 UNIT/ML VIAL SQ SCH ×2 (05:35→15:49)
[2020-10-09] MEDS: Renal Vitamin 1 CAP CAPSULE PO SCH (07:53)
[2020-10-09] MEDS: hydrALAZINE 25 MG TABLET PO SCH ×3 (07:53→23:28)
[2020-10-09] MEDS: Metoprolol XL (24 HR) Succ 50 MG TAB.ER.24H PO SCH (07:53)
[2020-10-09] MEDS: DilTIAZem CD (24hr) 240 MG CAP.ER.24H PO SCH (07:53)
[2020-10-09] MEDS: Furosemide 40 MG TABLET PO SCH (07:53)
[2020-10-09 08:40] LABS: Calcium 9.5 mg/dL (8.6-10.3); Phosphorous 3.9 mg/dL (2.7-4.5); Potassium 4.5 mEq/L (3.5-5.1)
[2020-10-10 04:58] LABS: Hematocrit 27.8 % (37.5-50.1); Hemoglobin 8.3 g/dL (12.9-16.9); Mean Corpuscular HGB Conc 29.9 g/dL (31.6-35.5); Mean Corpuscular Hemoglobin 28.4 pg (28.0-33.3); Mean Corpuscular Volume 95.2 fL (83.0-100.0); Mean Platelet Volume 10.9 fL (9.4-12.4); Platelet Count 322 K/mcL (140-400); Red Blood Count 2.92 M/mcL (4.19-5.50); Red Cell Distribution Width 16.3 % (11.5-14.5); White Blood Count 8.4 K/mcL (4.3-11.1)
[2020-10-10 05:16] LABS: Calcium 9.5 mg/dL (8.6-10.3); Magnesium 2.2 mg/dL (1.6-2.6); Phosphorous 4.2 mg/dL (2.7-4.5); Potassium 4.6 mEq/L (3.5-5.1)
[2020-10-10] MEDS: *HR* Heparin 5,000 UNIT/ML VIAL SQ SCH ×2 (05:23→17:23)
[2020-10-10] MEDS ORDERED: *HR* Heparin 10,000 UNIT/10 ML VIAL IV PRN (07:26)
[2020-10-10] MEDS ORDERED: 0.9 % Sodium Chloride 250 ML IVC PRN (07:26)
[2020-10-10] MEDS ORDERED: 0.9 % Sodium Chloride 1,000 ML PRIME SCH (07:30)
[2020-10-10] MEDS ORDERED: Furosemide 40 MG TABLET PO SCH (09:00)
[2020-10-10] MEDS ORDERED: *HR* FentaNYL (PF) 100 MCG/2 ML VIAL IVP ONE (09:03)
[2020-10-10] MEDS ORDERED: Heparin 1,000 UNITS/500 mL 500 ML ONE (09:11)
[2020-10-10] MEDS ORDERED: *HR* FentaNYL (PF) 100 MCG/2 ML VIAL ONE (09:18)
[2020-10-10] MEDS ORDERED: *HR* Heparin 5,000 UNIT/ML VIAL ONE (09:34)
[2020-10-10] MEDS ORDERED: CeFAZolin 2,000 MG/50 ML BAG IVPB ONE (09:40)
[2020-10-10] MEDS: hydrALAZINE 25 MG TABLET PO SCH ×3 (10:03→23:54)
[2020-10-10] MEDS: DilTIAZem CD (24hr) 240 MG CAP.ER.24H PO SCH (10:18)
[2020-10-10] MEDS: Renal Vitamin 1 CAP CAPSULE PO SCH (10:18)
[2020-10-10] MEDS: Metoprolol XL (24 HR) Succ 50 MG TAB.ER.24H PO SCH (10:18)
[2020-10-11 03:28] LABS: Hematocrit 29.6 % (37.5-50.1); Hemoglobin 8.9 g/dL (12.9-16.9); Mean Corpuscular HGB Conc 30.1 g/dL (31.6-35.5); Mean Corpuscular Hemoglobin 28.4 pg (28.0-33.3); Mean Corpuscular Volume 94.6 fL (83.0-100.0); Mean Platelet Volume 10.9 fL (9.4-12.4); Platelet Count 289 K/mcL (140-400); Red Blood Count 3.13 M/mcL (4.19-5.50); Red Cell Distribution Width 16.3 % (11.5-14.5); White Blood Count 8.6 K/mcL (4.3-11.1)
[2020-10-11 03:46] LABS: Calcium 9.5 mg/dL (8.6-10.3); Phosphorous 3.8 mg/dL (2.7-4.5); Potassium 4.7 mEq/L (3.5-5.1)
[2020-10-11] MEDS: *HR* Heparin 5,000 UNIT/ML VIAL SQ SCH ×2 (05:22→17:58)
[2020-10-11] MEDS: Metoprolol XL (24 HR) Succ 50 MG TAB.ER.24H PO SCH (09:20)
[2020-10-11] MEDS: Renal Vitamin 1 CAP CAPSULE PO SCH (09:20)
[2020-10-11] MEDS: DilTIAZem CD (24hr) 240 MG CAP.ER.24H PO SCH (09:20)
[2020-10-11] MEDS: hydrALAZINE 25 MG TABLET PO SCH ×2 (09:20→17:58)
[2020-10-11] MEDS ORDERED: *HR* Heparin 10,000 UNIT/10 ML VIAL IV PRN (14:15)
[2020-10-11] MEDS ORDERED: 0.9 % Sodium Chloride 250 ML IVC PRN (14:15)
[2020-10-11 18:25] VITALS: BP 151/73
== END 2020-10-11 18:48 | DRG 291 ==
LOC: 3NENU 17:42 → EMEROOARM 17:42 → SUATTDRO 09-20 00:19 → 3NENU 09-20 00:46 → SUATTDRO 09-23 15:42 → 2ANU 09-28 13:22
PROVIDERS: ADMIT Internal Medicine; ATTEND Internal Medicine
PROC: IRPERMA (2020-10-10 13:00)

== ENCOUNTER 2022-05-30 09:12 | Inpatient (IN) ==
[2022-05-30] MEDS ORDERED: Iopamidol - 370 500 ML MLS IVP ONE (10:10)
[2022-05-30 10:55] LABS: Basophils # 0.1 K/mcL (0.0-0.2); Basophils % 0.5 %; Eosinophils # 0.9 K/mcL (0.0-0.6); Eosinophils % 9.4 %; Hematocrit 34.7 % (37.5-50.1); Immature Granulocytes % 0.1 % (0-4); Lymphocytes # 1.1 K/mcL (0.6-4.6); Lymphocytes % 11.6 %; Mean Corpuscular HGB Conc 31.7 g/dL (31.6-35.5); Mean Corpuscular Hemoglobin 32.9 pg (28.0-33.3); Mean Corpuscular Volume 103.9 fL (83.0-100.0); Mean Platelet Volume 11.1 fL (9.4-12.4); Monocytes # 0.7 K/mcL (0.0-1.3); Monocytes % 7.5 %; Neutrophils # 6.6 K/mcL (1.6-8.9); Platelet Count 212 K/mcL (140-400); Red Blood Count 3.34 M/mcL (4.19-5.50); Red Cell Distribution Width 15.9 % (11.5-14.5); Segmented Neutrophils % 70.9 %; White Blood Count 9.2 K/mcL (4.3-11.1)
[2022-05-30 11:03] LABS: INR 1.1; Prothrombin Time 11.8 Seconds (9.4-12.1)
[2022-05-30 11:05] LABS: VBG HCO3 30 mEq/L (21-27); VBG PCO2 62 mmHg (41-51); VBG PH 7.29 pH Units (7.32-7.42); VBG PO2 38 mmHg (25-50)
[2022-05-30] MEDS ORDERED: Ipratropium/Albuterol Neb 3 ML IH ONE (11:10)
[2022-05-30 11:25] LABS: Influenza A PCR Negative (Negative); Influenza B PCR Negative (Negative); Resp. Syncytial Virus PCR Negative (Negative); SARS-CoV-2 by PCR (In House) Negative (Negative)
[2022-05-30] MEDS ORDERED: Furosemide 40 MG/4 ML VIAL IVP ONE (11:39)
[2022-05-30 11:41] LABS: Calcium 9.1 mg/dL (8.6-10.3); Potassium 4.5 mEq/L (3.5-5.1); Troponin I 0.06 ng/mL (< 0.04)
[2022-05-30] MEDS ORDERED: predniSONE 20 MG TABLET PO ONE (11:41)
[2022-05-30 12:02] LABS: Albumin 3.2 g/dL (3.5-5.7); Albumin/Globulin Ratio 0.7 (1.1-2.2); Bilirubin,Direct 0.1 mg/dL (0.0-0.2); Bilirubin,Indirect 0.3 mg/dL (0.0-1.0); Bilirubin,Total 0.4 mg/dL (0.3-1.0); Globulin 4.6 g/dL (2.4-3.5); Total Protein 7.8 g/dL (6.4-8.9)
[2022-05-30 14:39] LABS: ABG Base Excess 3 mEq/L (-2 to 3); ABG HCO3 29 mEq/L (21-27); ABG Oxygen Saturation 94 % (95-98); ABG PCO2 47 mmHg (35-45); ABG PO2 70 mmHg (85-104); ABG TCO2 30 mEq/L (20-26)
[2022-05-30] MEDS ORDERED: Ondansetron 4 MG/2 ML VIAL IVP PRN (15:38)
[2022-05-30] MEDS ORDERED: Naloxone 0.4 MG/ML INJ IVP PRN (15:38)
[2022-05-30] MEDS ORDERED: Acetaminophen 325 MG TABLET PO PRN (15:38)
[2022-05-30] MEDS ORDERED: Melatonin 3 MG TABLET PO PRN (15:38)
[2022-05-30] MEDS ORDERED: Dextrose Gel 15 GM/37.5 ML TUBE PO PRN ×2 (15:45)
[2022-05-30] MEDS ORDERED: D5% in Water 1,000 ML IVC PRN (15:45)
[2022-05-30] MEDS ORDERED: *HR* Dextrose 50 % in Water (Syg) 50 ML SYRINGE IVP PRN (15:45)
[2022-05-30] MEDS ORDERED: Ipratropium/Albuterol Neb 3 ML IH PRN (16:40)
[2022-05-30] MEDS ORDERED: cefTRIAXone 2,000 MG in 0.9 % Sodium Chloride 20 ML IVP ONE (16:42)
[2022-05-30] MEDS ORDERED: Vancomycin 1,250 MG/262.5 ML IV.SOLN IVPB ONE (17:00)
[2022-05-30] MEDS: Insulin LISPRO 300 UNITS/3 ML VIAL SUBQ SCH ×2 (18:02→20:29)
[2022-05-30 20:13] LABS: Hepatitis B Surface Antigen Nonreactive (Nonreactive)
[2022-05-30] MEDS: Ipratropium/Albuterol Neb 3 ML IH SCH (22:54)
[2022-05-31] MEDS: *HR* Heparin 5,000 UNIT/ML VIAL SQ SCH ×4 (00:44→20:24)
[2022-05-31 04:04] LABS: Hematocrit 30.3 % (37.5-50.1); Hemoglobin 9.6 g/dL (12.9-16.9); Immature Granulocytes % 0.2 % (0-4); Lymphocytes # 0.5 K/mcL (0.6-4.6); Mean Corpuscular HGB Conc 31.7 g/dL (31.6-35.5); Mean Corpuscular Hemoglobin 32.9 pg (28.0-33.3); Mean Corpuscular Volume 103.8 fL (83.0-100.0); Mean Platelet Volume 11.1 fL (9.4-12.4); Monocytes # 0.1 K/mcL (0.0-1.3); Monocytes % 2.6 %; Platelet Count 203 K/mcL (140-400); Red Blood Count 2.92 M/mcL (4.19-5.50); Segmented Neutrophils % 87.2 %; White Blood Count 4.6 K/mcL (4.3-11.1)
[2022-05-31] MEDS: Ipratropium/Albuterol Neb 3 ML IH SCH ×4 (04:05→22:44)
[2022-05-31 04:21] LABS: Phosphorous 3.9 mg/dL (2.7-4.5); Potassium 4.5 mEq/L (3.5-5.1)
[2022-05-31 04:34] LABS: Troponin I 0.06 ng/mL (< 0.04)
[2022-05-31] MEDS: Insulin LISPRO 300 UNITS/3 ML VIAL SUBQ SCH ×4 (07:28→20:25)
[2022-05-31] MEDS ORDERED: 0.9 % Sodium Chloride 250 ML IVC PRN (07:37)
[2022-05-31] MEDS ORDERED: 0.9 % Sodium Chloride 2,000 ML PRIME SCH (07:45)
[2022-05-31] MEDS ORDERED: allopurinoL 100 MG TABLET PO PRN (12:34)
[2022-05-31] MEDS: Calcium Acetate 667 MG CAPSULE PO SCH ×2 (13:58→20:18)
[2022-05-31] MEDS: Vancomycin 500 MG in 0.9 % Sodium Chloride Mini Bag 100 ML IVPB ONE ×2 (19:00→20:22)
[2022-05-31] MEDS ORDERED: Vancomycin 500 MG in 0.9 % Sodium Chloride Mini Bag 100 ML IVPB ONE (21:00)
[2022-06-01 03:46] LABS: Basophils % 0.5 %; Hematocrit 32.8 % (37.5-50.1); Hemoglobin 10.6 g/dL (12.9-16.9); Immature Granulocytes % 0.2 % (0-4); Lymphocytes % 15.5 %; Mean Corpuscular HGB Conc 32.3 g/dL (31.6-35.5); Mean Corpuscular Hemoglobin 32.9 pg (28.0-33.3); Mean Corpuscular Volume 101.9 fL (83.0-100.0); Mean Platelet Volume 10.8 fL (9.4-12.4); Monocytes % 8.4 %; Platelet Count 176 K/mcL (140-400); Red Blood Count 3.22 M/mcL (4.19-5.50); Red Cell Distribution Width 15.9 % (11.5-14.5); Segmented Neutrophils % 67.4 %
[2022-06-01 03:47] LABS: Eosinophils # 0.7 K/mcL (0.0-0.6); Lymphocytes # 1.3 K/mcL (0.6-4.6); Monocytes # 0.7 K/mcL (0.0-1.3); Neutrophils # 5.5 K/mcL (1.6-8.9); White Blood Count 8.1 K/mcL (4.3-11.1)
[2022-06-01 04:08] LABS: Magnesium 1.9 mg/dL (1.6-2.6); Phosphorous 3.2 mg/dL (2.7-4.5); Potassium 4.1 mEq/L (3.5-5.1)
[2022-06-01] MEDS: Ipratropium/Albuterol Neb 3 ML IH SCH ×4 (04:11→22:40)
[2022-06-01] MEDS: *HR* Heparin 5,000 UNIT/ML VIAL SQ SCH ×3 (06:39→20:57)
[2022-06-01] MEDS ORDERED: 0.9 % Sodium Chloride 250 ML IVC PRN (07:20)
[2022-06-01] MEDS: Insulin LISPRO 300 UNITS/3 ML VIAL SUBQ SCH ×4 (09:42→20:43)
[2022-06-01] MEDS: Calcium Acetate 667 MG CAPSULE PO SCH ×3 (09:42→20:04)
[2022-06-01] MEDS: Renal Vitamin 1 CAP CAPSULE PO SCH (09:42)
[2022-06-01] MEDS ORDERED: Vancomycin 500 MG in 0.9 % Sodium Chloride Mini Bag 100 ML IVPB ONE (16:00)
[2022-06-01] MEDS: Doxycycline 100 MG CAPSULE PO SCH (20:53)
[2022-06-02] MEDS: Ipratropium/Albuterol Neb 3 ML IH SCH ×4 (04:33→21:04)
[2022-06-02 05:51] LABS: Basophils % 0.4 %; Eosinophils # 0.9 K/mcL (0.0-0.6); Eosinophils % 11.5 %; Hematocrit 33.5 % (37.5-50.1); Hemoglobin 10.6 g/dL (12.9-16.9); Immature Granulocytes % 0.4 % (0-4); Lymphocytes # 1.2 K/mcL (0.6-4.6); Lymphocytes % 14.8 %; Mean Corpuscular HGB Conc 31.6 g/dL (31.6-35.5); Mean Corpuscular Hemoglobin 32.5 pg (28.0-33.3); Mean Corpuscular Volume 102.8 fL (83.0-100.0); Monocytes # 0.8 K/mcL (0.0-1.3); Monocytes % 10.5 %; Platelet Count 156 K/mcL (140-400); Red Blood Count 3.26 M/mcL (4.19-5.50); Red Cell Distribution Width 15.9 % (11.5-14.5); Segmented Neutrophils % 62.4 %
[2022-06-02 06:11] LABS: Calcium 9.2 mg/dL (8.6-10.3); Magnesium 1.9 mg/dL (1.6-2.6); Phosphorous 2.7 mg/dL (2.7-4.5); Potassium 3.9 mEq/L (3.5-5.1)
[2022-06-02] MEDS: *HR* Heparin 5,000 UNIT/ML VIAL SQ SCH ×3 (06:33→21:24)
[2022-06-02] MEDS ORDERED: Metoprolol XL (24 HR) Succ 50 MG TAB.ER.24H PO SCH (09:00)
[2022-06-02] MEDS: Insulin LISPRO 300 UNITS/3 ML VIAL SUBQ SCH ×4 (10:30→21:17)
[2022-06-02] MEDS: Renal Vitamin 1 CAP CAPSULE PO SCH (10:30)
[2022-06-02] MEDS: Doxycycline 100 MG CAPSULE PO SCH ×2 (10:30→21:16)
[2022-06-02] MEDS: Calcium Acetate 667 MG CAPSULE PO SCH ×3 (10:30→17:09)
[2022-06-03] MEDS: Ipratropium/Albuterol Neb 3 ML IH SCH ×4 (04:06→22:08)
[2022-06-03 05:32] LABS: Basophils % 0.4 %; Eosinophils # 1.3 K/mcL (0.0-0.6); Hematocrit 35.4 % (37.5-50.1); Hemoglobin 11.1 g/dL (12.9-16.9); Immature Granulocytes % 0.3 % (0-4); Lymphocytes # 1.1 K/mcL (0.6-4.6); Lymphocytes % 15.1 %; Mean Corpuscular HGB Conc 31.4 g/dL (31.6-35.5); Mean Corpuscular Hemoglobin 32.6 pg (28.0-33.3); Mean Corpuscular Volume 103.8 fL (83.0-100.0); Mean Platelet Volume 10.6 fL (9.4-12.4); Monocytes # 0.7 K/mcL (0.0-1.3); Monocytes % 9.8 %; Neutrophils # 4.3 K/mcL (1.6-8.9); Platelet Count 164 K/mcL (140-400); Red Blood Count 3.41 M/mcL (4.19-5.50); Red Cell Distribution Width 15.9 % (11.5-14.5); Segmented Neutrophils % 57.4 %; White Blood Count 7.5 K/mcL (4.3-11.1)
[2022-06-03] MEDS: *HR* Heparin 5,000 UNIT/ML VIAL SQ SCH ×3 (05:32→20:39)
[2022-06-03 05:50] LABS: Calcium 9.4 mg/dL (8.6-10.3); Magnesium 1.9 mg/dL (1.6-2.6); Phosphorous 3.1 mg/dL (2.7-4.5); Potassium 4.1 mEq/L (3.5-5.1)
[2022-06-03] MEDS: Metoprolol XL (24 HR) Succ 50 MG TAB.ER.24H PO SCH (08:23)
[2022-06-03] MEDS: Doxycycline 100 MG CAPSULE PO SCH ×2 (08:23→20:40)
[2022-06-03] MEDS: Calcium Acetate 667 MG CAPSULE PO SCH ×3 (08:23→17:20)
[2022-06-03] MEDS: Renal Vitamin 1 CAP CAPSULE PO SCH (08:23)
[2022-06-03] MEDS: Insulin LISPRO 300 UNITS/3 ML VIAL SUBQ SCH ×4 (08:25→20:29)
[2022-06-04] MEDS: Ipratropium/Albuterol Neb 3 ML IH SCH ×2 (03:54→10:41)
[2022-06-04 04:10] LABS: Basophils % 0.4 %; Eosinophils # 1.4 K/mcL (0.0-0.6); Eosinophils % 14.6 %; Hematocrit 35.9 % (37.5-50.1); Hemoglobin 11.4 g/dL (12.9-16.9); Immature Granulocytes % 0.1 % (0-4); Lymphocytes # 1.1 K/mcL (0.6-4.6); Lymphocytes % 12.2 %; Mean Corpuscular HGB Conc 31.8 g/dL (31.6-35.5); Mean Corpuscular Hemoglobin 32.9 pg (28.0-33.3); Mean Corpuscular Volume 103.8 fL (83.0-100.0); Mean Platelet Volume 10.5 fL (9.4-12.4); Monocytes # 0.7 K/mcL (0.0-1.3); Monocytes % 7.8 %; Platelet Count 159 K/mcL (140-400); Red Blood Count 3.46 M/mcL (4.19-5.50); Red Cell Distribution Width 15.9 % (11.5-14.5); Segmented Neutrophils % 64.9 %; White Blood Count 9.3 K/mcL (4.3-11.1)
[2022-06-04 04:29] LABS: Calcium 9.6 mg/dL (8.6-10.3); Potassium 4.3 mEq/L (3.5-5.1)
[2022-06-04] MEDS: *HR* Heparin 5,000 UNIT/ML VIAL SQ SCH (04:47)
[2022-06-04 07:10] VITALS: PULSE 93; O2SAT 98
[2022-06-04] MEDS: Insulin LISPRO 300 UNITS/3 ML VIAL SUBQ SCH ×2 (07:39→12:20)
[2022-06-04] MEDS ORDERED: 0.9 % Sodium Chloride 250 ML IVC PRN (08:09)
[2022-06-04] MEDS: Metoprolol XL (24 HR) Succ 50 MG TAB.ER.24H PO SCH (08:56)
[2022-06-04] MEDS ORDERED: Furosemide 40 MG TABLET PO SCH (09:00)
[2022-06-04] MEDS: Calcium Acetate 667 MG CAPSULE PO SCH ×2 (09:30→12:22)
[2022-06-04] MEDS: Doxycycline 100 MG CAPSULE PO SCH (09:30)
[2022-06-04] MEDS: Renal Vitamin 1 CAP CAPSULE PO SCH (09:31)
[2022-06-04] MEDS ORDERED: Albumin 25% 25gram/100mL 25 GM/100 ML IV.SOLN IVPB STA (10:30)
[2022-06-04 14:35] VITALS: BP 110/57; TEMP 98.1
== END 2022-06-04 14:20 | DRG 280 ==
LOC: 2ANU 09:12 → EMEROOARM 09:12 → 2ANU 17:28
PROVIDERS: ADMIT Internal Medicine; ATTEND Internal Medicine